=== PATIENT | female | born 1935 | race Caucasian/White ===

== ENCOUNTER → 2017-02-19 | Outpatient (CLI) | payer OTHER ==
[~2017-02-19] MED LIST: AMLO5; ASPI81EC PO; BETA1 PO; DOCU100 PO; ESTMEDA PO; GABA100 PO; LEVSOD88 PO; LOSA50 PO; OMEP20ER; RANI150 PO; SIMV10 PO; TRIHYD253B PO; UBID10 PO
== END ==
LOC: LAB SHORT 09:50
DX: N39.0 Urinary tract infection, site not specified (principal)
CPT/HCPCS: 87077; 87086; 87186

== ENCOUNTER → 2018-02-11 | Outpatient (CLI) | payer OTHER | END | disposition home or self-care (01) | LOC: LAB EV 09:27 → LAB SHORT 09:27 | DX: N39.0 Urinary tract infection, site not specified (principal) | CPT/HCPCS: 87086 ==

== ENCOUNTER → 2018-02-13 | Outpatient (CLI) | payer OTHER ==
[2018-02-13 11:17] LABS: BASOPHILS ABSOLUTE AUTO 0.02 K/mm3 (0.00-0.23); BASOPHILS PERCENT AUTO 1 % (0-2); EOSINOPHILS ABSOLUTE AUTO 0.05 K/mm3 (0.00-0.68); EOSINOPHILS PERCENT AUTO 1 % (0-6); Hemoglobin 13.1 g/dL (11.5-16.0); IMMATURE GRAN ABSOLUTE AUTO 0.01 K/mm3 (0.00-0.10); IMMATURE GRAN PERCENT AUTO 0 % (0-1); LYMPHOCYTES ABSOLUTE AUTO 0.94 K/mm3 (0.84-5.20); LYMPHOCYTES PERCENT AUTO 21 % (21-46); MONOCYTES ABSOLUTE AUTO 0.42 K/mm3 (0.16-1.47); MONOCYTES PERCENT AUTO 10 % (4-13); Mean Corpuscular HGB 29.9 pg (26.0-34.0); Mean Corpuscular HGB Conc 34.5 g/dL (31.5-36.5); Mean Corpuscular Volume 87 fL (80-100); Mean Platelet Volume 8.4 fL (9.1-12.4); NEUTROPHILS ABSOLUTE AUTO 2.96 K/mm3 (1.96-9.15); NEUTROPHILS PERCENT AUTO 67 % (41-73); Platelet Count 337 K/mm3 (150-400); RDW Coefficient Variation 14.2 % (11.7-14.2); RDW Standard Deviation 45.5 fL (35.1-46.3); Red Blood Cell Count 4.38 M/mm3 (3.80-5.20)
[2018-02-13 11:22] LABS: Anion Gap 7 mmol/L (6-16); Blood Urea Nitrogen 12 mg/dL (8-24); Bun/Creatinine Ratio 14.8 (12.0-20.0); CO2, Blood 30 mmol/L (21-32); Calcium, Blood 9.5 mg/dL (8.5-10.1); Chloride, Blood 95 mmol/L (98-108); Creatinine, Blood 0.81 mg/dL (0.40-1.00); Glomerular Filtration Rate >60 (60-); Glucose, Blood 104 mg/dL (70-99); Potassium, Blood 3.9 mmol/L (3.5-5.5); Sodium, Blood 132 mmol/L (136-145)
[2018-02-13 11:54] LABS: Thyroid Stimulating Hormone 6.865 uIU/mL (0.360-4.800)
[2018-02-13 11:55] LABS: Troponin I <0.015 ng/mL (0.000-0.040)
== END | disposition home or self-care (01) ==
LOC: LAB SHORT 11:13 → LAB EV 11:13
PROVIDERS: Physician Assistant Surgical
DX: R53.83 Other fatigue (principal)
CPT/HCPCS: 80048; 84443; 84484; 85025

== ENCOUNTER → 2018-04-12 | Outpatient (CLI) | payer MEDICARE | END | disposition home or self-care (01) | LOC: LAB EV 11:59 → LAB SHORT 11:59 | DX: N39.0 Urinary tract infection, site not specified (principal) | CPT/HCPCS: 87077; 87086; 87186 ==

== ENCOUNTER → 2018-06-15 | Outpatient (CLI) | payer MEDICARE | END | disposition home or self-care (01) | LOC: LAB SHORT 12:18 → LAB EV 12:18 | DX: R51 Headache (principal) | CPT/HCPCS: 85651 ==

== ENCOUNTER → 2018-11-19 | Outpatient (CLI) | payer MEDICARE | LOC: LAB SHORT 13:11 → LAB EV 13:11 | DX: N39.0 Urinary tract infection, site not specified (principal) | CPT/HCPCS: 87086 ==

== ENCOUNTER → 2018-12-19 | Outpatient (CLI) | payer MEDICARE | END | disposition home or self-care (01) | LOC: LAB EV 15:48 → LAB SHORT 15:48 | DX: N39.0 Urinary tract infection, site not specified (principal) | CPT/HCPCS: 87086 ==

== ENCOUNTER → 2019-03-28 | Outpatient (CLI) | payer MEDICARE | END | disposition home or self-care (01) | LOC: LAB EV 11:30 → LAB SHORT 11:30 | DX: N39.0 Urinary tract infection, site not specified (principal) | CPT/HCPCS: 87077; 87086; 87186 ==

== ENCOUNTER 2019-04-02 22:58 | Observation (INO) | payer MEDICARE ==
[~2019-04-02] VITALS: Ht 165.1 cm; Wt 65.0 kg
[~2019-04-02 22:58] MED LIST changes: +AMLO10 PO; -AMLO5; +ASPI81CH PO; -ASPI81EC PO; -BETA1 PO; -ESTMEDA PO; +LEVSOD100 PO; -LEVSOD88 PO; +OCUVITE EYE +1 EACH PO; -OMEP20ER; +OMEP20ER PO; +Prempro 0.625-1 EACH PO; -RANI150 PO; +Zantac150 MG PO
[2019-04-03 00:14] LABS: BASOPHILS ABSOLUTE AUTO 0.02 K/mm3 (0.00-0.23); BASOPHILS PERCENT AUTO 0 % (0-2); EOSINOPHILS ABSOLUTE AUTO 0.05 K/mm3 (0.00-0.68); EOSINOPHILS PERCENT AUTO 1 % (0-6); Hemoglobin 13.3 g/dL (11.5-16.0); IMMATURE GRAN ABSOLUTE AUTO 0.02 K/mm3 (0.00-0.10); IMMATURE GRAN PERCENT AUTO 0 % (0-1); LYMPHOCYTES ABSOLUTE AUTO 1.81 K/mm3 (0.84-5.20); LYMPHOCYTES PERCENT AUTO 34 % (21-46); MONOCYTES ABSOLUTE AUTO 0.51 K/mm3 (0.16-1.47); MONOCYTES PERCENT AUTO 10 % (4-13); Mean Corpuscular HGB 29.6 pg (26.0-34.0); Mean Corpuscular HGB Conc 35.9 g/dL (31.5-36.5); Mean Corpuscular Volume 82 fL (80-100); Mean Platelet Volume 8.2 fL (9.1-12.4); NEUTROPHILS ABSOLUTE AUTO 2.91 K/mm3 (1.96-9.15); NEUTROPHILS PERCENT AUTO 55 % (41-73); Platelet Count 314 K/mm3 (150-400); RDW Coefficient Variation 12.2 % (11.7-14.2); RDW Standard Deviation 36.9 fL (35.1-46.3); White Blood Cell Count 5.32 K/mm3 (4.00-11.30)
[2019-04-03 00:30] LABS: Anion Gap 8 mmol/L (6-16); Blood Urea Nitrogen 9 mg/dL (8-24); CO2, Blood 29 mmol/L (21-32); Chloride, Blood 84 mmol/L (98-108); Creatinine, Blood 0.64 mg/dL (0.40-1.00); Glomerular Filtration Rate >60 (60-); Glucose, Blood 108 mg/dL (70-99); Potassium, Blood 3.3 mmol/L (3.5-5.5); Sodium, Blood 121 mmol/L (136-145)
[2019-04-03 01:50] LABS: Free Thyroxine 1.39 ng/dL (0.70-1.60)
[2019-04-03 01:52] LABS: Thyroid Stimulating Hormone 6.88 uIU/mL (0.360-4.800)
--- NOTE | 2019-04-03 02:05 | NUR ---
REPORT RECIEVED FROM SRAVANTHI YOUNGBLOOD RN AND AWAITING PT T/F TO ROOM 337.
--- NOTE | 2019-04-03 02:40 | NUR ---
PT T/F TO ROOM 337 W/ AT BEDSIDE. SHE TRANSFERRED W/SBA FROM [facility] TO BED AND WAS ORIENTED TO ROOM AND CALL SYSTEM. PT ARRIVED FROM ER W/NS INFUSING AND KRIDER WAS COMMENCED CONCURRENTLY. PT REPORTS 9/10 ALAS THAT SHE'S HAD FOR X10 DAYS SO TYLENOL WAS PROVIDED, AWAITING EFFECT. BP REMAINS ELEVATED SINCE ER, NOW 199/82 W/LOPRESOR RECIEVED, WILL RE-EAVALUATE. RESP PANEL COMPLETED, DROPLET ISO COMMENCED, RESULTS PENDING. PT REFUSED FLU VAC D/T HAVING HAD ALREADY THIS SEASON. PT IS POOR HX SO MED REC WILL NEED COMPLETED DURING DAY SHIFT. SHE USES [facility], WILL ENSURE DAY STAFF ARE AWARE. REMAINS AT BEDSIDE, RECLINER PROVIDED.
--- NOTE | 2019-04-03 03:00 | NUR ---
PT STARTED ON TELEMETRY: SBRADY AT 59 BPM. PT ASYMPTOMATIC OF ANY CARDIAC DISTRESS.
[2019-04-03 04:39] LABS: Adenovirus Not Detected (NOT DETECT); Bordetella pertussis Not Detected (NOT DETECT); Chlamydophila pneumoniae Not Detected (NOT DETECT); Coronavirus 229E Not Detected (NOT DETECT); Coronavirus HKU1 Not Detected (NOT DETECT); Coronavirus NL63 Not Detected (NOT DETECT); Coronavirus OC43 Not Detected (NOT DETECT); Human Metapneumovirus Detected (NOT DETECT); Human Rhinovirus/Enterovirus Not Detected (NOT DETECT); Influenza A Not Detected (NOT DETECT); Influenza A/2009-H1 Not Detected (NOT DETECT); Influenza A/H1 Not Detected (NOT DETECT); Influenza A/H3 Not Detected (NOT DETECT); Influenza B Not Detected (NOT DETECT); Mycoplasma pneumoniae Not Detected (NOT DETECT); Parainfluenza Virus 1 Not Detected (NOT DETECT); Parainfluenza Virus 2 Not Detected (NOT DETECT); Parainfluenza Virus 3 Not Detected (NOT DETECT); Parainfluenza Virus 4 Not Detected (NOT DETECT); Respiratory Syncytial Virus Not Detected (NOT DETECT)
--- NOTE | 2019-04-03 04:45 | NUR ---
ALAS ONLY MINIMALLY IMPROVED TO 7/10 AFTER TYLENOL. MADE AWARE AND FENTANYL RX'D W/25MCG IV FENT RECIEVED. BP REMAINS ELEVATED, NOW 168/76 BUT HYDRALAZINE NOT GIVEN AT THIS TIME TO SEE IF BP IMPROVES W/PAIN MANAGEMENT. WILL MONITOR FOR EFFECT.
[2019-04-03 05:22] LABS: Hematocrit 36.5 % (33.0-51.0); Hemoglobin 13.1 g/dL (11.5-16.0); Mean Corpuscular HGB 29.3 pg (26.0-34.0); Mean Corpuscular HGB Conc 35.9 g/dL (31.5-36.5); Mean Corpuscular Volume 82 fL (80-100); Mean Platelet Volume 8.4 fL (9.1-12.4); Platelet Count 314 K/mm3 (150-400); RDW Coefficient Variation 12.1 % (11.7-14.2); RDW Standard Deviation 36.5 fL (35.1-46.3); Red Blood Cell Count 4.47 M/mm3 (3.80-5.20); White Blood Cell Count 5.87 K/mm3 (4.00-11.30)
[2019-04-03 05:42] LABS: Alanine Aminotransfer (ALT/SGP 15 U/L (12-78); Albumin, Blood 3.3 g/dL (3.4-5.0); Alk Phos 49 U/L (50-136); Anion Gap 9 mmol/L (6-16); Aspartate Aminotrans (AST/SGOT 16 U/L (12-37); Bilirubin, Total 0.5 mg/dL (0.1-1.0); Blood Urea Nitrogen 7 mg/dL (8-24); Bun/Creatinine Ratio 12.7 (12.0-20.0); CO2, Blood 26 mmol/L (21-32); Calcium, Blood 8.5 mg/dL (8.5-10.1); Chloride, Blood 87 mmol/L (98-108); Creatinine, Blood 0.55 mg/dL (0.40-1.00); Globulin, Blood 3.4 g/dL (2.2-4.0); Glomerular Filtration Rate >60 (60-); Glucose, Blood 100 mg/dL (70-99); Potassium, Blood 3.7 mmol/L (3.5-5.5); Sodium, Blood 122 mmol/L (136-145); Total Protein, Blood 6.7 g/dL (6.4-8.2)
--- NOTE | 2019-04-03 06:01 | NUR ---
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
--- NOTE | 2019-04-03 06:12 | NUR ---
BP IMPROVED TO 141/66 AFTER RECIEVING FENTANYL. PT APPEARS COMFORTABLE, HAS BEEN SLEEPING AND AWOKE TO STATE ALAS IS NOW 3/10.
--- NOTE | 2019-04-03 06:42 | NUR ---
MADE AWARE OF SUSTAINED BRADYCARDIA, HR 44-58 BPM SINCE PLACED ON TELEMETRY. NO NEW ORDERS RECIEVED. MD INSTRUCTED TO KEEP MONITORING.
--- NOTE | 2019-04-03 06:44 | NUR ---
SUMMARY: A/OX4, SPECIFIES NEEDS AND PLEASANT/COOPERATIVE W/CARE. SHE'S A SBA TO [facility] BUT HASN'T VOIDED SINCE ARRIVAL SO UA/CX STILL NEEDS COLLECTION. NS INFUSING AT 75 ML/HR PER HOSPITALIST RX FOR 1500 MLS TOTAL, 1ST BAG INFUSING AT THIS TIME AND NA NOW 122, WAS 121. KRIDER INFUSED AND K IMPROVED TO 3.7 THIS AM. ALAS NOW 3/10 AFTER RECIEVING PO TYLENOL AND IV FENTANYL. PT DENIES NAUSEA BUT ADMITS TO MILD DIZZYNESS SINCE "COLD-LIKE SYMPTOMS X10 DAYS". BP WAS INITIALLY HYPERTENSIVE, WAS 199/82 BUT HAS IMPROVED TO 141/66 AFTER PO METROPROLOL AND IMPROVED PAIN CONTROL. HR HAS TRENDED DOWNWARD THOUGH, WAS 60'S IN ER AND NOW SUSTAINING 40'S PER TELEMETRY. MD AWARE AND NO NEW ORDERS. PT DENIES S/S CARDIAC DISTRESS. RESP PANEL COMPLETED AND PT REMOVED FROM ISO PER FABY SEEK INSTRUCTION. PT IS (+) FOR HUMAN METAPNEUMONIA VIRUS. PT RECENTY HAD PYELONEPHRITIS ON OUTPATIENT ABX BUT DENIES ANY ONGOINF SYMPTOMS. NO ACUTE CHANGES, VSS/AFEBRILE AT THIS TIME. WCTM AND REPORT TO DAY RN.
[2019-04-03] MEDS ORDERED: ACET500 PO (09:21)
[2019-04-03] MEDS ORDERED: CEFD300 PO (09:22)
[2019-04-03] MEDS ORDERED: CELECOXIB200 MG PO (09:23)
[2019-04-03] MEDS ORDERED: Benicar40 MG PO (09:25)
[2019-04-03] MEDS ORDERED: HYDCHL25 PO (09:25)
[2019-04-03] MEDS ORDERED: METO25ER PO (09:25)
[2019-04-03] MEDS ORDERED: PANT40 PO (09:26)
[2019-04-03] MEDS ORDERED: Pyridium200 MG PO (09:27)
[2019-04-03] MEDS ORDERED: Black Cohosh40 MG PO (09:31)
[2019-04-03] MEDS ORDERED: PROBIOTIC1 EACH PO (09:31)
--- NOTE | 2019-04-03 15:06 | NUR ---
DISCHARGE THIS RN EXPLAINED DISCHARGE INSTRUCTIONS AND MEDICATIONS TO PT AND SHE REPORTS SHE UNDERSTANDS. MEDICATIONS FAXED TO REQUESTED PHARMACY. IV REMOVED WIHTOUT DIFFICULTY. PT TRANSFERRED TO PRIVATE VEHICLE. PT'S BELONGINGS WITH PT.
== END 2019-04-03 13:16 | disposition home or self-care (01) ==
LOC: ER 22:58 → MEDS 22:59
PROVIDERS: Emergency Medicine; ADMIT Internal Medicine
DX: E87.1 Hypo-osmolality and hyponatremia (principal); G93.40 Encephalopathy, unspecified; E86.0 Dehydration; E03.9 Hypothyroidism, unspecified; I10 Essential (primary) hypertension; K21.9 Gastro-esophageal reflux disease without esophagitis; E78.5 Hyperlipidemia, unspecified; Z88.5 Allergy status to narcotic agent; Z88.0 Allergy status to penicillin; Z79.82 Long term (current) use of aspirin; Z79.899 Other long term (current) drug therapy
CPT/HCPCS: 0099U; 36415; 70450; 71045; 80048; 80053; 84439; 84443; 85025; 85027; 85651; 86140; 93005; 93010; 96360; 96361; 96374; 99285-25; A9270; A9270-GY; G0378; J3010; J3480; J7030

== ENCOUNTER → 2019-04-06 | Outpatient (CLI) | payer MEDICARE ==
[~2019-04-06] MED LIST changes: +ACET500 PO; +Benicar40 MG PO; +Black Cohosh40 MG PO; +CEFD300 PO; +CELECOXIB200 MG PO; +HYDCHL25 PO; +METO25ER PO; +PANT40 PO; +PROBIOTIC1 EACH PO; +Pyridium200 MG PO
[2019-04-06 10:24] LABS: BASOPHILS ABSOLUTE AUTO 0.02 K/mm3 (0.00-0.23); BASOPHILS PERCENT AUTO 0 % (0-2); EOSINOPHILS ABSOLUTE AUTO 0.04 K/mm3 (0.00-0.68); EOSINOPHILS PERCENT AUTO 1 % (0-6); Hematocrit 36.6 % (33.0-51.0); Hemoglobin 12.9 g/dL (11.5-16.0); IMMATURE GRAN ABSOLUTE AUTO 0.02 K/mm3 (0.00-0.10); IMMATURE GRAN PERCENT AUTO 0 % (0-1); LYMPHOCYTES PERCENT AUTO 20 % (21-46); MONOCYTES PERCENT AUTO 9 % (4-13); Mean Corpuscular HGB 29.9 pg (26.0-34.0); Mean Corpuscular HGB Conc 35.2 g/dL (31.5-36.5); Mean Platelet Volume 8.5 fL (9.1-12.4); NEUTROPHILS ABSOLUTE AUTO 5.51 K/mm3 (1.96-9.15); NEUTROPHILS PERCENT AUTO 70 % (41-73); Platelet Count 396 K/mm3 (150-400); RDW Coefficient Variation 13.2 % (11.7-14.2); RDW Standard Deviation 40.6 fL (35.1-46.3); Red Blood Cell Count 4.31 M/mm3 (3.80-5.20); White Blood Cell Count 7.89 K/mm3 (4.00-11.30)
[2019-04-06 10:25] LABS: Mean Corpuscular Volume 85 fL (80-100)
[2019-04-06 10:26] LABS: Alanine Aminotransfer (ALT/SGP 16 U/L (12-78); Albumin, Blood 3.6 g/dL (3.4-5.0); Albumin/Globulin Ratio 0.9 (0.8-1.8); Alk Phos 65 U/L (40-126); Anion Gap 6 mmol/L (6-16); Aspartate Aminotrans (AST/SGOT 22 U/L (12-37); Bilirubin, Total 0.3 mg/dL (0.1-1.0); Blood Urea Nitrogen 12 mg/dL (8-24); CO2, Blood 27 mmol/L (21-32); Calcium, Blood 8.9 mg/dL (8.5-10.1); Chloride, Blood 96 mmol/L (98-108); Creatinine, Blood 0.86 mg/dL (0.40-1.00); Globulin, Blood 3.9 g/dL (2.2-4.0); Glomerular Filtration Rate >60 (60-); Glucose, Blood 117 mg/dL (70-99); Sodium, Blood 129 mmol/L (136-145); Total Protein, Blood 7.5 g/dL (6.4-8.2)
== END | disposition home or self-care (01) ==
LOC: LAB SHORT 10:06 → LAB EV 10:06
PROVIDERS: Internal Medicine
DX: J06.9 Acute upper respiratory infection, unspecified (principal); E87.1 Hypo-osmolality and hyponatremia
CPT/HCPCS: 80053; 85025

== ENCOUNTER → 2019-04-10 | Outpatient (CLI) | payer MEDICARE | END | disposition home or self-care (01) | LOC: LAB SHORT 14:15 → LAB EV 14:15 | DX: N39.0 Urinary tract infection, site not specified (principal) | CPT/HCPCS: 87086 ==

== ENCOUNTER 2023-01-28 11:20 | Inpatient (IN) | payer OTHER ==
[~2023-01-28] VITALS: Ht 170.2 cm; Wt 67.7 kg
[2023-01-28 11:52] LABS: BASOPHILS ABSOLUTE AUTO 0.01 K/mm3 (0.00-0.23); BASOPHILS PERCENT AUTO 0 % (0-2); EOSINOPHILS PERCENT AUTO 0 % (0-6); Hematocrit 42.3 % (33.0-51.0); Hemoglobin 14.5 g/dL (11.5-16.0); IMMATURE GRAN ABSOLUTE AUTO 0.05 K/mm3 (0.00-0.10); IMMATURE GRAN PERCENT AUTO 0 % (0-1); LYMPHOCYTES ABSOLUTE AUTO 0.46 K/mm3 (0.84-5.20); LYMPHOCYTES PERCENT AUTO 4 % (21-46); MONOCYTES ABSOLUTE AUTO 0.64 K/mm3 (0.16-1.47); MONOCYTES PERCENT AUTO 5 % (4-13); Mean Corpuscular HGB 30.9 pg (26.0-34.0); Mean Corpuscular HGB Conc 34.3 g/dL (31.5-36.5); Mean Corpuscular Volume 90 fL (80-100); NEUTROPHILS ABSOLUTE AUTO 11.26 K/mm3 (1.96-9.15); NEUTROPHILS PERCENT AUTO 91 % (41-73); Platelet Count 286 K/mm3 (150-400); RDW Coefficient Variation 13.8 % (11.7-14.2); RDW Standard Deviation 45.9 fL (35.1-46.3); White Blood Cell Count 12.42 K/mm3 (4.00-11.30)
[2023-01-28 12:19] LABS: Albumin, Blood 3.8 g/dL (3.4-5.0); Bilirubin, Total 0.6 mg/dL (0.1-1.0); Bun/Creatinine Ratio 24.8 (12.0-20.0); Calcium, Blood 9.8 mg/dL (8.5-10.1); Creatinine, Blood 0.65 mg/dL (0.40-1.00); Potassium, Blood 3.6 mmol/L (3.5-5.5); Total Protein, Blood 7.8 g/dL (6.4-8.2)
[2023-01-28 15:14] LABS: Source, Urine Straight Cath
--- NOTE | 2023-01-28 15:18 | NUR ---
ED Palliative Care Consult Spoke with Dr Cummins and discussed case. Pt brought in by EMS with report of Pt being found down by Pt's spouse's caregiver's the next morning. Pt has POLST that shows DNR and Comfort Care Only. Pt significantly somnolent. ED RN states EMS reports Pt's spouse has Dementia. Pt resting on gurney with her eyes closed upon arrival. This PC RN accompanied by PC RN Yvrose. Pt's son at bedside. Pt barely opens her eyes with verbal stimuli. Son Frank reports at baseline Pt is independent of her ADLs although uses a walker for ambulation. He reports Pt's spouse receives caregiver support at home. Frank expresses concerns regarding not knowing acute issues. Discussed options including returning Pt home or work up to determine accute issues. Son would like Pt to have work up. Relayed wishes to Dr Cummins. Palliative Care will remain available
[2023-01-28 15:42] LABS: Appearance, Urine Hazy (Clear); Bilirubin, Urine Neg (Neg); Blood, Urine 4+ (Neg); Color, Urine Yellow (P-Yellow); Glucose Qualitative, Urine Neg (Neg); Ketones, Urine Neg (Neg); Leukocyte Esterase, Urine Neg (Neg); Nitrite, Urine Neg (Neg); Protein, Urine 3+ (Neg); Specific Gravity, Urine 1.015 (1.003-1.022); Urobilinogen, Urine NORM (Normal)
[2023-01-28 15:57] LABS: Amorphous Mod (0-Heavy); Bacteria Mod /hpf; Hyaline Casts 0-2 /lpf (0-2); Mucus Light (0-Heavy); Red Blood Cells, Urine 0-2 /hpf (0-2); Squamous Epithelial Cells Few /hpf (Few); White Blood Cells, Urine 0-2 /hpf (0-5)
[2023-01-28 16:09] LABS: U Amphetamine Screen Not Detected; U Barbituate Screen Not Detected; U Benzodiazapine Screen Not Detected; U Buprenorphine Screen Not Detected; U Cannabinoids Screen Not Detected; U Cocaine Screen Not Detected; U Methadone Screen Not Detected; U Methamphetamine Screen Not Detected; U Opiates Screen Not Detected; U Oxycodone Screen DETECTED; U Phencyclidine Screen Not Detected
--- NOTE | 2023-01-28 20:06 | NUR ---
ADMIT NOTE PT TRANSPORTED TO UNIT BY DEJA PEREZ. SLID TO HOSPITAL BED WITH SLIDER SHEET. PT BELONGINGS AT BEDSIDE. ABX INFUISING. RECEIVED REPORT FROM DEJA KOCH, RN. ORIENTED TO ROOM AND CALL LIGHT. EDUCATED ON FIRE SAFETY AND PREVENTION. WILL CONTINUE TO MONITOR.
[2023-01-28 20:12] VITALS: BP 180/80
[2023-01-28 23:07] VITALS: BP 154/74
--- NOTE | 2023-01-29 03:29 | NUR ---
SHIFT SUMMARY PT SOMNOLENT SINCE ARRIVING TO FLOOR. ORIENTED TO SELF ONLY. CURRENTLY ON BEDREST AND NOT OOB THIS SHIFT. PUREWICK IN PLACE DRAINING DARK YELLOW URINE. 1/2 NS INFUISING AT 200 ML/HR. LEFT SIDED DEFICITS/WEAKNESS. BED KEPT IN LOWEST POSITION WITH CALL LIGHT WITHIN REACH. WILL CONTINUE TO MONITOR.
[2023-01-29 04:04] VITALS: BP 177/82
[2023-01-29 06:47] LABS: BASOPHILS ABSOLUTE AUTO 0.01 K/mm3 (0.00-0.23); BASOPHILS PERCENT AUTO 0 % (0-2); EOSINOPHILS PERCENT AUTO 0 % (0-6); Hematocrit 39.4 % (33.0-51.0); Hemoglobin 13.3 g/dL (11.5-16.0); IMMATURE GRAN ABSOLUTE AUTO 0.07 K/mm3 (0.00-0.10); IMMATURE GRAN PERCENT AUTO 1 % (0-1); LYMPHOCYTES ABSOLUTE AUTO 1.05 K/mm3 (0.84-5.20); LYMPHOCYTES PERCENT AUTO 9 % (21-46); MONOCYTES ABSOLUTE AUTO 0.97 K/mm3 (0.16-1.47); MONOCYTES PERCENT AUTO 9 % (4-13); Mean Corpuscular HGB 30.5 pg (26.0-34.0); Mean Corpuscular HGB Conc 33.8 g/dL (31.5-36.5); Mean Corpuscular Volume 90 fL (80-100); Mean Platelet Volume 11.1 fL (9.1-12.4); NEUTROPHILS ABSOLUTE AUTO 9.07 K/mm3 (1.96-9.15); NEUTROPHILS PERCENT AUTO 81 % (41-73); Platelet Count 221 K/mm3 (150-400); RDW Coefficient Variation 14.6 % (11.7-14.2); RDW Standard Deviation 47.9 fL (35.1-46.3); Red Blood Cell Count 4.36 M/mm3 (3.80-5.20); White Blood Cell Count 11.17 K/mm3 (4.00-11.30)
[2023-01-29 07:24] VITALS: BP 167/82
[2023-01-29 07:25] LABS: Albumin, Blood 3.2 g/dL (3.4-5.0); Albumin/Globulin Ratio 0.9 (0.8-1.8); Bilirubin, Total 0.4 mg/dL (0.1-1.0); Bun/Creatinine Ratio 21.1 (12.0-20.0); Creatinine, Blood 0.71 mg/dL (0.40-1.00); Globulin, Blood 3.4 g/dL (2.2-4.0); Magnesium, Blood 2.5 mg/dL (1.6-2.4); Phosphorus, Blood 3.3 mg/dL (2.5-4.9); Potassium, Blood 3.4 mmol/L (3.5-5.5); Thyroid Stimulating Hormone 0.376 uIU/mL (0.360-4.800); Total Protein, Blood 6.6 g/dL (6.4-8.2)
--- NOTE | 2023-01-29 16:39 | NUR ---
SHIFT SUMMARY Pt lethargic, alert to self and place this am. Able to take crushed meds in small bites of applesauce without difficulty. Unable to swallow water. Left side flaccid, PERRLA this am. Unable to sit up on her own. Purewick with becky urine output. Repositioned for comfort and skin integrity. Comfort care orders then placed. Son and spouse at bedside. Plan is home hospice to [facility] once arranged.
--- NOTE | 2023-01-29 17:35 | NUR ---
POLST Called to room by CM to discuss/complete POLST. Pt was alert, oriented to self and family. Spouse, Mike and son, Jarod at bedside. This PC RN reviewed different code status' and levels of care. Pt verbalized, "no" when asked about CPR. Mike states, "do whatever you can to keep her comfortable." POLST form reflects DNR/PROFESSOR OF EDUCATION. POLST signed by provider, photocopies made, sent to medical records and placed in chart. Son took original copy home to place on . Theraputic listening provided to spouse, Mike. They have been 71 years. Neither one ever dated anyone else. She was 16 y/o he was 18 y/o. Jarod reports he is the only 1 out of 5 that can take care of his parents. He is agreeable to taking his mom home with hospice. CM reports, pt is set for D/C home on hospice this Wednesday01/31/23. Will remain available for future needs.
--- NOTE | 2023-01-29 20:00 | NUR ---
REQUESTING POULTRY SCALDER FROM [facility] MESSAGE LEFT W/ SON SAMREEN FOR PT REQUESTING VISIT FROM [facility] POULTRY SCALDER.
--- NOTE | 2023-01-30 07:37 | NUR ---
SHIFT SUMMARY ADMIT FOR RHABDO, CVA W/ LEFT SIDE DEFICIETS. PT BECOMING MORE ALERT AND VERBAL DURING THIS SHIFT AND RECALLING INFORMATION SUCH HOME ADDRESS AND REASON FOR ADMISSION. ASSISTED PT TO MOVE L EXTREMETIES AND EYES. PT VISION APPEARS TO STOP AT MIDLINE AND NO LEFT LATERAL EYE MOVEMENT. PT MEDS W/ APPLESAUCE AND DOES WELL BUT CONTINUES TO HAVE DIFFICULTY SWALLOWING THICKENED LEMON WATER. PT UNDERSTANDS RISK FOR PNEUMONIA W/ ASPIRATION. PURWIC IN PLACE AND PT AWARE OF URINATION. PT PLACED ON BEDPAN DURING NIGHT WHEN AWAKE AND REQUESTED. BED ALARM SET, CALL LIGHT W/IN REACH ALTHOUGH UNSURE IF PT REMEMBERS HOW TO USE. FREQUENT REMINDERS DURING SHIFT.
[2023-01-30 09:25] VITALS: BP 169/86
--- NOTE | 2023-01-30 09:49 | NUR ---
Pt resting in bed and is more alert then when this RN visited on . Pt's spouse and son at bedside. Pt denies pain at this time. Pt does express concerns that her thurst is not being quenched with current nectar thick liquids. Instructed Pt and family she may have thin liquids for comfort and pleasure but could aspirate. Instructed on risks and consequences. Pt and family will consider. Spoke with Dr Dotson and discussed case. Palliative Care will remain available
--- NOTE | 2023-01-30 18:30 | NUR ---
SHIFT SUMMARY Pt alert to self and place. Neck and head pain managed with po Roxanol. Weak cough with fluids and bites of food. Family educated on dysphagia. Repositioned for comfort frequently. Purewick in place, urine becky in color.
[2023-01-30] MEDS ORDERED: FURO40 PO (22:29)
[2023-01-30] MEDS ORDERED: OXYC10TA19 PO (22:29)
[2023-01-30] MEDS ORDERED: TORSE20 PO (22:30)
[2023-01-30] MEDS ORDERED: MOME.1TO TOP (22:33)
--- NOTE | 2023-01-31 10:12 | NUR ---
Received phone call from Arm[facility]ASQUE[facility] [id number] [facility] and can be admitted to home hospice today. Spoke with son Frank who states pt daughter Bulmaro [phone] will be caring for her this week, however will not be here until tonight. Agrees to dc home with hospice Wednesday am.
--- NOTE | 2023-01-31 14:05 | NUR ---
Comfort Care Visit Pt resting in bed with her eyes closed. Pt appears comfortable with no S/S of distress at this time. Spoke with Primary RN Kalpesh and discussed case. No concerns reported at this time. Plan for Pt to D/C home tomorrow with Hospice. Palliative Care will remain available
--- NOTE | 2023-01-31 17:27 | NUR ---
SHIFT SUMMARY Pt remains alert to self/place. Able to communicate basic needs. Roxanol effective for neck/back pain. Increased pain with repositioning. Incontinent of B&B. Purewick out per last [place] shift. Frequent wet brief changes. Increased difficulty swallowing today. Oral care/swabs provided. 1-2 sips of water/juice. Pain and safety maintained. Will continue to monitor this shift.
--- NOTE | 2023-02-01 12:10 | NUR ---
medicated pt twice today, is very painful when she is turned, family at bedside,using a sponge to wet her mouth, call light in reach.
--- NOTE | 2023-02-01 13:03 | NUR ---
Pt very painful when moved, is moaning, has not had a lot of urine output, bladder scan was done with a total of 1750mls, placed 14f baird cath and obtained an order from Dr. Ceron. family in room at this time. pt was also medicated with 15mg roxinol, and is resting comfortably at this time. call light in reach.
--- NOTE | 2023-02-01 18:12 | NUR ---
pt is more comfortable this afternoon early evening, she was able to sleep for a few hrs after putting her baird in, did medicate her this evening as she is having back pain, no further changes this shift. call light in reach, lots of family in to visit. may go home on hospice tomorrow.
--- NOTE | 2023-02-02 07:41 | NUR ---
Shift Summary Pt on comfort care. Her primary complaint tonight was thirst, I called the hospitalist who ordered 1 bag NS @ 75. I also gave pt frequent mouth swabs with wet sponge as she was unable to swallow safely in her current state. Gave Roxanol PRN for twice for pain, 10 mg. Pt unable to take scheduled medicaitons due to aspiration risk. Family present last night and this AM.
--- NOTE | 2023-02-02 12:27 | NUR ---
Symptom Management Called to room by Primary RN for review of pain symptom management options. Primary RN reports recent dose of Roxanol and Ativan given with good relief. Pain was reported at 5/10. Current FLACC scale is 2/10 post medication. Pt currently receiving a bedbath and is tolerating well. Plan: Primary RN to provide tylenol suppository for assistance with longer term pain control. Continue to reposition pt as she tolerates for comfort. Will remain available as needed.
--- NOTE | 2023-02-02 16:55 | NUR ---
NOTE FAMILY RELATED THAT SHE WILL MOVING INTO [place] ON WEDNESDAY. PT AROUSES TO VERBAL. ROXANOL/TYLENOL EFFECTIVE FOR PAIN. PT RESTED FOR SEVERAL HOURS WHILE FAMILY SAT AT BEDSIDE. PT REPOSITIONED AND ORAL CARE DONE. SHE LIKES ICE WATER ON HER SPONGES AND COFFEE. CARE ONGOING.
--- NOTE | 2023-02-03 06:44 | NUR ---
Shift Summary Pt on comfort care. She slept t/o most of the night, and upon waking around 0300 showed signs of pain. Medicated with 20 mg Roxanol and the another 10 mg 1.5 hours later. Pt currently resting comfortably. Pt's son in the room. Pt given frequent wet sponges orally while awake for comfort. Aguirre in place, patent.
--- NOTE | 2023-02-04 04:18 | NUR ---
SHIFT SUMMARY 87 YR F ON COMFORT CARE. PT IS BEING GIVEN ROXINOL BEFORE BEING REPOSITIONED IT IS PAINFUL FOR HER. SHE HAD HER GRANDDAUGHTER IN THE ROOM THIS EVENING AND THEY READ THE BIBLE TOGETHER. PT APPEARS TO HAVE RESTED PEACEFULLY THIS SHIFT. NO ACUTE CHANGES.
[2023-02-04] MEDS ORDERED: MORP20L SL (08:58)
[2023-02-04] MEDS ORDERED: Ativan1 MG PO (08:59)
--- NOTE | 2023-02-04 11:33 | NUR ---
TRANSPORT ARRIVED AT 1100 TO TRANSFER PT TO [place]. PT TRANSFERED VIA GURNEY. PT MEDICATED WITH ROXANOL PER ORDER PRIOR TO TRANSFERING. PT DISCHARGE PACKET PROVIDED TO TRANSPORT TEAM AT TIME OF ARRIVAL. PT FAMILY MEMBER PRESENT AT TIME OF TRANSFER.
== END 2023-02-04 11:05 | disposition hospice, home (50) | DRG 557 ==
LOC: ER 11:20 → MEDS 17:46 → ENPENDDIS 02-04 10:12 → MEDS 02-04 11:05
PROVIDERS: Emergency Medicine; ADMIT Family Medicine
DX: M62.82 Rhabdomyolysis (principal); I63.9 Cerebral infarction, unspecified; G81.94 Hemiplegia, unspecified affecting left nondominant side; Z66 Do not resuscitate; Z51.5 Encounter for palliative care; I10 Essential (primary) hypertension; E03.9 Hypothyroidism, unspecified; K21.9 Gastro-esophageal reflux disease without esophagitis; G30.9 Alzheimer's disease, unspecified; F02.80 Dementia in other diseases classified elsewhere, unspecified severity, without behavioral disturbance, psychotic disturbance, mood disturbance, and anxiety; I25.10 Atherosclerotic heart disease of native coronary artery without angina pectoris; E78.5 Hyperlipidemia, unspecified; R33.9 Retention of urine, unspecified; E11.9 Type 2 diabetes mellitus without complications; Z88.5 Allergy status to narcotic agent; Z88.0 Allergy status to penicillin; Z91.030 Bee allergy status; Z91.038 Other insect allergy status; Z79.890 Hormone replacement therapy; Z79.899 Other long term (current) drug therapy
CPT/HCPCS: 36415; 51701; 70450; 80053; 81001; 82550; 83735; 84100; 84443; 85025; 87086; 93005; 93010; 96361; 96374; 96375; 97110; 97110-CQ; 97112; 97161; 97166; 99285-25; A9270; J0360; J0456; J0696; J1644; J7030; J7050